=== PATIENT | male | born 1965 | race Caucasian/White ===

== ENCOUNTER → 2017-02-13 | Outpatient (CLI) | payer BC ==
--- NOTE | 2017-02-13 18:58 | RADIOLOGY REPORT (SQ) ---
EXAM DESCRIPTION: U/S SCROTUM W/DOPPLER COMPLETED DATE/TIME: 02/13/2017 5:13 pm REASON FOR STUDY: SPERMATOCELE N43.40 SPERMATOCELE OF EPIDIDYMIS, UNSPECIFIED COMPARISON: None. TECHNIQUE: Static and realtime tellez scale imaging of the scrotum and testes. Selected color Doppler and spectral images recorded to document blood flow. LIMITATIONS: None. FINDINGS: RIGHT: TESTICLE: Normal size, 47 x 37 x 28 mm. Normal echotexture. Normal blood flow. No mass. EPIDIDYMIS: 20 x 22 x 14 mm. Contains a 13 x 18 x 17 mm cystic structure. HYDROCELE OR VARICOCELE: No. HERNIA OR EXTRA-TESTICULAR MASS: No. OTHER: No other significant finding. LEFT: TESTICLE: Normal size, 47 x 36 x 23 mm. Normal echotexture. Normal blood flow. No mass. EPIDIDYMIS: The epididymis is slightly complex. There is a very small cyst. The epididymis measures 8 x 10 x 14 mm. HYDROCELE OR VARICOCELE: No. HERNIA OR EXTRA-TESTICULAR MASS: No. OTHER: No other significant finding. IMPRESSION: 1. Small left epididymal cyst versus spermatocele measuring about 4 mm. 2. 13 x 18 x 17 mm spermatocele in the right epididymis. TECHNICAL DOCUMENTATION: JOB ID: [id number] [employer]- All Rights Reserved
== END ==
LOC: RAD 16:15
PROVIDERS: ATTEND Urology
DX: N43.41 Spermatocele of epididymis, single (principal)
CPT/HCPCS: 76870; 93976